=== PATIENT | female | born 1990 | race African-American/Black ===

== ENCOUNTER 2022-09-12 23:17 | Emergency (ER) | payer OTHER | END 2022-09-13 00:32 | disposition home or self-care (01) | LOC: CSHERS 23:17 | DX: R11.2 Nausea with vomiting, unspecified (principal); F17.210 Nicotine dependence, cigarettes, uncomplicated | CPT/HCPCS: 99283 ==

== ENCOUNTER 2022-10-01 01:28 | Emergency (ER) | payer OTHER ==
[2022-10-01] MEDS ORDERED: Ibuprofen 200 MG TAB ONE (03:27)
[2022-10-01 04:10] LABS: SARS-CoV-2 NAA Rapid Test Not Detected (NotDetected)
== END 2022-10-01 05:11 ==
LOC: CSHERS 01:28
DX: J02.9 Acute pharyngitis, unspecified (principal); J45.909 Unspecified asthma, uncomplicated; F17.210 Nicotine dependence, cigarettes, uncomplicated; Z79.899 Other long term (current) drug therapy; Z20.822 Contact with and (suspected) exposure to COVID-19
CPT/HCPCS: 87081; 87430; 99283

== ENCOUNTER 2022-11-14 21:33 | Emergency (ER) | payer OTHER | END 2022-11-14 22:39 | disposition home or self-care (01) | LOC: CSHERS 21:33 | DX: J45.909 Unspecified asthma, uncomplicated (principal); F17.210 Nicotine dependence, cigarettes, uncomplicated | CPT/HCPCS: 99284 ==